=== PATIENT | male | born 1995 | race Caucasian/White ===

== ENCOUNTER 2025-06-18 18:11 | Emergency (ER) | payer BC, SELFPAY ==
[2025-06-18 18:18] VITALS: BP 162/93; PULSE 96; RESP 16; TEMP 36.9; O2SAT 100
--- OUTSIDE RECORDS SUMMARY | 2025-06-18 18:19 | XMS_ITS | Clinical Summary ---
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 Medications cefdinir (OMNICEF) 300 MG Capsule 9 Active fluticasone (FLONASE) 50 MCG/ACT Suspension 9 Active acetaminophen (TYLENOL) 500 MG Tablet Take 1 Tab by mouth every 6 hours as needed for Fever (for temperature greater than 100.4 F.). Do not exceed 4000 mg of acetaminophen in 24 hour from all sources. 0 9 Active traMADol (ULTRAM) 50 MG Tablet Take 1 Tab by mouth every 6 hours as needed for Moderate or more severe pain. 20 Tab 9 Active Active Problems No known active problems Family History Medical History Relation Name Comments Hypertension Father No Known Problems Mother Relation Name Status Comments Father Mother Social History Tobacco Use Types Packs/Day Years Used Date Smoking Tobacco: Never Smokeless Tobacco: Current Chew Tobacco Cessation:Ready to Q uit: No; Counseling Given: Yes Alcohol Use Standard Drinks/Week Comments Never 0 (1 standard drink = 0.6 oz pur e alcohol) AUDIT-C Answer Date Recorded Frequency of Alcohol Consumption Never 04/21/2019 Average Number of Drinks Not on file 019 Frequency of Binge Drinking Not on file 06/2019 PHQ-2 Answer Date Recorded PHQ-2 Score 0 06/30/2019 Sex and Gender Information Value Date Recorded Sex Assigned at Not on file Legal Sex Male 12:21 AM CDT Gender Identity Not on file Sexual Orientation Not on file Last Filed Vital Signs Vital Sign Reading Time Taken Comments Blood Pressure 138/78 04/30/2019 2:42 PM CDT Pulse 88 04/30/2019 11:10 AM CDT Temperature 36.8 C (98.3 F) 04/30/2019 2:42 PM CDT Respiratory Rate 18 04/30/2019 2:42 PM CDT Oxygen Saturation 99% 04/30/2019 2:42 PM CDT Inhaled Oxygen Concentration - - Weight 90.7 kg (200 lb) 04/27/2019 4:00 PM CDT Height 182.9 cm (6') 04/27/2019 4:00 PM CDT Body Mass Index 27.12 04/27/2019 4:00 PM CDT Plan of Treatment Health Maintenance Due Date Last Done Comments Hepatitis C Virus (HCV) Screening 1996 TdaP Immunization 1996 Hepatitis B Immunization (1 of 3 - 19+ 3-dose series) 2015 Human Papillomavirus (HPV) Immunization (1 - 3-dose SCDM series) 2023 SARS-COV-2 Immunization ( - season) 2024 Influenza Immunization (#1) 2025 Respiratory Syncytial Virus (RSV) Immunization (Adult) (1 - 1-dose 75+ series) 2071 Meningococcal Immunization (ACWY) Aged Out No longer eligible based on patient's age to complete this topic Pneumococcal Immunization Combined Aged Out No longer eligible based on patient's age to complete this topic Rotavirus Immunization Aged Out No lo nger eligible based on patient's age to complete this topic Medical Devices Implanted Type Area Forex Trader Device Identifier Shelf Expiration Date Model / Serial / Lot [employer] Hemostatic Matrix 8cc - [id number] Implanted:Qty: 1 on 04/30/2019 by Macario Wilkinson MD at [facility] IMPLANT N/A: Nose [employer] / ETH[employer]ON HEMOSTASIS 02/20/2023 [id number] / UNKNOWN / [id number] Insurance CONSOCIATE CONSOCIATE Member Subscriber Plan / Payer (Ef fective 2018-Present) Name:Eduard Puentes Mp Relation to Subscriber:Child Name:STEPH PUENTES Date of :1975 (Home) Address: [address] [place] [id number] Payer ID:[id number] Type:Not on file Address: [place] [id number] Care Teams Emissions Testing And Repair Technician Relationship Specialty Start Date End Date Provider, None PR PCP - General 04/21/19
--- NOTE | 2025-06-18 18:29 | ED_ITS ---
HPI - URI/Sore Throat General Chief Complaint: Upper Respiratory Infection Stated Complaint: Sinus Problem Time Seen by Provider: 06/18/25 18:30 Source: patient Mode of arrival: ambulatory Limitations: no limitations History of Present Illness HPI Narrative: 29 yo M presents with sinus congestion that has worsened over past 4 days with sinus pressure, fatigue. Reports pat taste in mouth from drainage. Concern for sinus infection. hx of allergies. Always has some congestion and drainage. Has tried allergy meds with no relief. Afebrile. All systems reviewed and negative except as noted above. Related Data Allergies Allergy/AdvReac Type Severity Reaction Status Date / Time No Known Allergies Allergy Verified 06/18/25 18:22 PMF Comments At time of signature, agree with nursing past medical, surgical, social and family history. There is no relevant family history pertinent to the presenting complaint. Exam Narrative: GENERAL: This is a well-nourished, well-developed patient, in no apparent distress. HEAD: normocephalic, atraumatic. EYES: PERRL. Sclera clear/white. Vision is grossly intact. EARS: External ears normal, auditory canals clear and without drainage, TMs normal without perforation. Hearing grossly intact. NOSE: External nose normal with Purulent nasal drainage, erythema and swelling to bilateral nares. Left-sided maxillary tenderness on palpation. THROAT: Mucous membranes moist, Erythematous with postnasal drainage. No exudates. NECK: Neck supple, non-tender without lymphadenopathy, masses or thyromegaly. CARDIOVASCULAR: Regular rate and rhythm without murmurs, gallops, or rubs. RESPIRATORY: Clear to auscultation. Breath sounds equal bilaterally. No wheezes, rales, or rhonchi. SKIN: warm, Dry, intact with no suspicious lesions or rash, good texture and turgor. NEURO: awake, alert, and oriented to person, place and time. There were no obvious focal neurologic abnormalities. EXTREMITIES: No joint tenderness, effusion, or edema noted. Course Course Level of Care: Express Care Visit Vital Signs Vital signs: Vital Signs Temperature 36.9 C 06/18/25 18:18 Pulse Rate 96 06/18/25 18:18 Respiratory Rate 16 06/18/25 18:18 Blood Pressure 162/93 H 06/18/25 18:18 Pulse Oximetry 100 06/18/25 18:18 Oxygen Delivery Room Air 06/18/25 18:18 Temperature 36.9 C 06/18/25 18:18 Pulse Rate 96 06/18/25 18:18 Respiratory Rate 16 06/18/25 18:18 Blood Pressure 162/93 H 06/18/25 18:18 Pulse Oximetry 100 06/18/25 18:18 Oxygen Delivery Room Air 06/18/25 18:18 Reviewed MDM - URI/Sore Throat MDM Narrative Medical decision making narrative: will treat patient for bacterial sinusitis due to duration of symptoms and exam findings. Patient's blood pressure elevated today. States he is aware that his blood pressure has been elevated, checks on machine when he is at [facility]. Does not have a primary care physician. No headache, chest pain or shortness of breath. Patient referred to on-call physician for follow-up. Differential Diagnosis Differential diagnosis: Likely upper respiratory infection, sinusitis, viral infection and influenza Discharge Plan Discharge Clinical Impression: Elevated blood pressure reading, Acute bacterial sinusitis Patient Disposition: Home Condition: Stable Instructions: Antibiotic Form, Sinusitis (ED), Hypertension (ED) Additional Instructions: Take medications as prescribed. Blood pressure was elevated today. Follow-up with a primary care physician in 1 week. Patient Language: Tuvaluan Prescriptions: New fluticasone propionate [Flonase Allergy Relief] 50 mcg/actuation spray,suspension 1 spray intranasal BID Qty: 16 0RF Rx Instructions: administer into each nostril amoxicillin-pot clavulanate 875-125 mg tablet 1 tablet PO Q12H 7 Days Qty: 14 0RF Follow-up/Referrals: Toribio Ny MD [Physician, Family Practice] - 1 Week Referral Note: Follow up in 1 week to recheck blood pressure PHYSICIAN,ORTHOPEDIC NURSE PRACTITIONER [Primary Care Provider, Internal Medicine] Time of Disposition: 18:40
[2025-06-18 18:45] VITALS: BP 152/88
--- NOTE | 2025-06-18 18:47 | PC.NURSE ---
B/P at discharge 152/88
== END 2025-06-18 18:48 | disposition home or self-care (01) ==
PROVIDERS: Emergency Provider Nurse Practitioner Family
DX: R03.0 Elevated blood-pressure reading, without diagnosis of hypertension (principal); J01.90 Acute sinusitis, unspecified
CPT/HCPCS: 99213; G0463